=== PATIENT | female | born 1945 | race Two or more races ===

== ENCOUNTER 2024-08-15 22:34 | Emergency (ER) | payer SELFPAY ==
--- NOTE | 2024-08-15 22:35 | PC.NURSE ---
PT CALLED FOR XRAY,PT REFUSED AND WENT INSIDE A CAR TO LEAVE.
== END 2024-08-15 22:35 | disposition left against medical advice (07) ==
PROVIDERS: Emergency Provider Emergency Medicine
DX: Z53.21 Procedure and treatment not carried out due to patient leaving prior to being seen by health care provider (principal)